=== PATIENT | female | born 1985 | race Caucasian/White ===

== ENCOUNTER 2020-01-19 13:00 | Inpatient (IN) | payer OTHER ==
[~2020-01-19] VITALS: Ht 157.5 cm; Wt 3.2 kg
[2020-01-19] MEDS ORDERED: PRENATAL TABLE1 EAC3 PO (14:30)
[2020-01-22] MEDS ORDERED: PERCOCET 5-3251 EACH PO (07:28)
[2020-01-22] MEDS ORDERED: DOCUSATE SODIU100 MG PO (07:28)
[2020-01-22] MEDS ORDERED: SIMETHICONE125 M1 PO (07:28)
[2020-01-22] MEDS ORDERED: PRENATAL TABLE1 EAC3 PO (07:28)
== END 2020-01-22 13:19 | disposition home or self-care (01) | DRG 785 ==
LOC: LDR 13:00 → SURG-SUITE 19:14
PROVIDERS: ADMIT Obstetrics & Gynecology; ATTEND Obstetrics & Gynecology
PROC: 0UB70ZZ Excision of Bilateral Fallopian Tubes, Open Approach (ICD-10-PCS; 2020-01-19)
PROC: 4A1HXFZ Monitoring of Products of Conception, Cardiac Rhythm, External Approach (ICD-10-PCS; 2020-01-19)
PROC: 10D00Z1 Extraction of Products of Conception, Low, Open Approach (ICD-10-PCS; principal; 2020-01-19 18:30)
DX: O34.211 Maternal care for low transverse scar from previous cesarean delivery (principal); Q27.0 Congenital absence and hypoplasia of umbilical artery; Z3A.39 39 weeks gestation of pregnancy; Z37.0 Single live birth; Z30.2 Encounter for sterilization